=== PATIENT | female | born 1995 | race Two or more races ===

== ENCOUNTER 2018-08-19 11:21 | Emergency (ER) | payer MEDICAID ==
[~2018-08-19] VITALS: Ht 162.6 cm; Wt 54.9 kg
[2018-08-19] MEDS ORDERED: OLANZAPINE 10 MG VIAL IM ONE ×2 (11:30→11:39)
[2018-08-19 11:49] LABS: BASOPHILS % (AUTO) 0.5 % (0.0-2.0); EOSINOPHILS % (AUTO) 1.9 % (0.0-6.0); HEMATOCRIT 35 % (33-45); HEMOGLOBIN 11.5 g/dL (11.5-14.8); LYMPHOCYTES # (AUTO) 1.8 /CMM (0.8-4.8); MEAN CORPUSCULAR HGB CONC 33 g/dl (31.0-36.0); MEAN CORPUSCULAR VOLUME 92 fL (82-100); MONOCYTES # (AUTO) 0.5 /CMM (0.1-1.30); MONOCYTES % (AUTO) 5.8 % (2.0-12.0); NEUTROPHILS % (AUTO) 70.8 % (43.0-81.0); PLATELET COUNT (AUTO) 277 /CMM (150-450); RED BLOOD CELL COUNT(AUTO) 3.77 MIL/uL (4.0-5.2); WHITE BLOOD COUNT (AUTO) 8.5 K/uL (4.3-11.0)
[2018-08-19 11:55] LABS: CALCIUM, SERUM 7.7 mg/dL (8.5-10.1); CARBON DIOXIDE 23 mmol/L (21-32); CHLORIDE 106 mmol/L (98-107); CREATININE 0.6 mg/dL (0.6-1.3); GLUCOSE 138 mg/dL (74-106); POTASSIUM 3.9 mmol/L (3.5-5.1); SODIUM SERUM 140 mmol/L (136-145); UREA NITROGEN, BLOOD 7 mg/dL (7-18)
[2018-08-19 12:01] LABS: ALANINE AMINOTRANSFERASE 19 U/L (12-78); ALKALINE PHOSPHATASE 105 U/L (46-116); ASPARTATE AMINOTRANSFERASE 13 U/L (15-37); BILIRUBIN,TOTAL 0.2 mg/dL (0.2-1.0); TOTAL PROTEIN, SERUM 6.4 g/dL (6.4-8.2)
[2018-08-19 12:03] LABS: ACETAMINOPHEN < 2 ug/ml (10-30); ALCOHOL, BLOOD < 3 mg/dL (0-0); SALICYLATE 0.6 mg/dL (2.8-20.0)
[2018-08-19] MEDS ORDERED: diphenhydrAMINE HCL 50 MG/ML VIAL IM ONE (13:30)
[2018-08-19] MEDS ORDERED: LORAZEPAM INJ 2 MG/ML VIAL IM ONE (13:30)
[2018-08-19] MEDS ORDERED: HALOPERIDOL LACTATE INJ 5 MG/ML VIAL IM ONE (13:30)
--- NOTE | 2018-08-19 13:30 | NUR ---
PT WAS RELAXED S/P ESCORTED TO THE RESTROOM. COOPERATIVE AND PROVIDED URINE SPECIMEN. ORDERED MEDICATION NOT ADMINISTERED.
[2018-08-19 14:04] LABS: APPEARANCE,URINE Cloudy (CLEAR); BILIRUBIN,URINE Negative (NEGATIVE); BLOOD, URINE Small Ery/uL (NEGATIVE); COLOR,URINE Yellow (YELLOW); KETONES,URINE Negative (NEGATIVE); LEUKOCYTE ESTERASE ,URINE Large (NEGATIVE); NITRITE, URINE Negative (NEGATIVE); PROTEIN,URINE 30 mg/dl (NEGATIVE); UGLUCOSE Negative (NEGATIVE); UROBILINOGEN,URINE 0.2 EU/dL (0.2)
[2018-08-19 14:26] LABS: BACTERIA,URINE 1+ /HPF (None Seen); SQUAMOUS EPITHELIAL CELL,UR Few /HPF (None Seen); WBC,URINE 51-80 /HPF (0-3)
--- NOTE | 2018-08-19 20:50 | NUR ---
the patient was seen and assessed at bedside; no acute events awaiting for homeless care home placement
--- NOTE | 2018-08-20 00:30 | NUR ---
PT APPEARS TO BE RESTING COMFORTABLY. PT'S RESP EVEN AND UNLABORED. WILL CONTINUE TO MONITOR THE PT.
--- NOTE | 2018-08-20 04:25 | NUR ---
PT APPEARS TO BE RESTING COMFORTABLY WITH NO S/S OF PAIN OR DISTRESS. WILL CONTINUE TO MONITOR THE PT.
--- NOTE | 2018-08-20 06:20 | NUR ---
PT APPEARS TO BE SLEEPING SOUNDLY WITH NO S/S OF PAIN OR DISTRESS NOTED. PT IS EASILY AROUSED AND STATED THAT SHE WAS HUNGRY. PT REC'D A SANDWICH AND JUICE.
--- NOTE | 2018-08-20 06:25 | NUR ---
PT PROVIDED WITH SANDWICH AND JUICE
--- NOTE | 2018-08-20 09:42 | NUR ---
Lindsey, psychotherapist social worker at bedside for eval
--- NOTE | 2018-08-20 10:00 | NUR ---
Social service consult requested by Dr. Colby for homelessness. Pt. is a 23 year old female who was brought into [facility] ED for altered mental status. Pt's toxicology showed positive for methamphetamines, cocaine and marijuana. SW met with pt. bedside. pt. is alert and oriented x 4. Pt. was standing by her bed and eating breakfast. Pt. states she has been homeless for a year. Pt. states she has a tent by [employer] and wants to go back to her tent. SW offered pt. custodial placement, however pt. declined stating, " I don't like those places, I will go back to my tent. " SW asked pt. if she uses any drugs. Pt. denied stating she only uses marijuana. SW informed pt. her toxicology showed positive for meth and cocaine. Pt. just smiled and did not respond to SHARIF's statement. SW offered pt. resources to health clinics and drug and alcohol rehab facilities and pt. declined both. Homeless patient Waiver Form was signed by the pt. and placed in pt's chart. Pt. was given a TAP card upon discharge. No other social service needs are requested at this time. SW is available, if needed.
--- NOTE | 2018-08-20 10:20 | NUR ---
Donato Short called for PET eval
--- NOTE | 2018-08-20 10:52 | NUR ---
Pt is a&o x 3, pt is calm and appropriate. She was provided breakfast. She refuses placement and accepts TAP card
--- NOTE | 2018-08-20 10:53 | NUR ---
Pt is able to nagivate the community and requests to return to normal living situation in tent on [address]
[2018-08-20 10:56] VITALS: BP 107/60
== END 2018-08-20 10:57 | disposition home or self-care (01) ==
LOC: ER 11:27 → EDBD 11:27 → ER 08-20 10:57
DX: F28 Other psychotic disorder not due to a substance or known physiological condition (principal); Z60.2 Problems related to living alone
CPT/HCPCS: 36415; 80048; 80076; 80305; 80307; 80329; 81001; 84702; 84703; 85025; 87086; 96372; 99284; G0480; J3490; 81000-TC; 87186-TC